=== PATIENT | female | born 1990 | race Caucasian/White ===

== ENCOUNTER 2018-09-10 05:54 | Inpatient (IN) | payer SELFPAY ==
[2018-09-10] MEDS ORDERED: SUBLIMAZE IV PRN (06:59)
[2018-09-10] MEDS ORDERED: BRETHINE SUB-Q PRN (06:59)
[2018-09-10] MEDS ORDERED: XYLOCAINE 2% INFILTRATI ONE (06:59)
[2018-09-10] MEDS ORDERED: LACTATED RINGERS 1,000 ML IV SCH (07:00)
[2018-09-10] MEDS ORDERED: PITOCin/NS 20 UNIT/1000ML DRIP 20 UNITS/1,000 ML BAG IV SCH (07:00)
--- NOTE | 2018-09-10 07:01 | History and Physical Report ---
History of Present Illness Date of examination: 09/10/18 Date of admission: 09/10/2018 Chief complaint: Contractions History of present illness: 28 year old female presents to L&D in active labor with advanced cervical dilation. Patient states contractions began around 3:00 AM today. Patient denies LOF or VB. Patient reports active movement. Patient received care at [facility] and records are available. LMP . EDC 09/18/2018 based on ultrasound done at 22 weeks, 1 day gestation. significant for the following: Late transfer of care from [place] to [facility] at 33 weeks gestation, LSIL pap smear, anemia (supplemented with iron), UTI (treated with Macrobid). labs are as follows: O+, antibody screen negative, rubella immune, urine culture showed E coli, RPR nonreactive, HIV negative, hepatitis B surface antigen negative, chlamydia negative, gonorrhea negative, sugar test 113, GBS negative. Past History Past Medical History: no pertinent history Past Surgical History: appendectomy [employer] History: abnormal PAP smear. denies: chlamydia, gonorrhea, hepatitis B, hepatitis C, herpes, HIV, syphilis, trichomonas Family/Genetic History: none Social history: lives with family, full code. denies: smoking, alcohol abuse, prescription drug abuse, IV drug use - Obstetrical History Expected Date of Delivery: 09/18/18 Actual Gestation: 38 Week(s) 6 Day(s) : 3 Para: 2 Hx # Term Pregnancies: 2 Number of Pregnancies: 0 Spontaneous Abortions: 0 Induced : 0 Number of Living Children: 2 Medications and Allergies Allergies Allergy/AdvReac Type Severity Reaction Status Date / Time No Known Allergies Allergy Unverified 09/10/18 08:01 Review of Systems All systems: negative (contractions) - Vital Signs Vital signs: Vital Signs Temp Pulse BP 98.6 F 90 101/64 09/10/18 06:35 09/10/18 06:35 09/10/18 06:35 Temp Pulse Resp BP Pulse Ox 98.6 F 90 101/64 09/10/18 06:35 09/10/18 06:35 09/10/18 06:35 - Physical Exam Abdomen: Positive: normal appearance, soft. Negative: distention, tenderness, guarding, rigidity Genitourinary (Female): Positive: normal external genitalia, normal perenium. Negative: perineal/vulvar lesions Vagina: Positive: normal moisture Uterus: Positive: enlarged (size=dates). Negative: tender Anus/Rectum: Positive: normal perianal skin Extremities: Positive: normal. Negative: tenderness, edema - Obstetrical FHR: category 2 Uterine Contraction Monitor Mode: External Cervical Dilatation: 7 Cervical Effacement Percentage: 100 station: -1 Uterine Contraction Pattern: Regular Uterine Contraction Intensity: Moderate Results Result Diagrams: 09/10/18 07:15 All other labs normal. Assessment and Plan A: at 38 weeks, 6 days gestation. Active labor. GBS negative. P: Admit. Continuous EFM. Anticipate vaginal .
[2018-09-10 07:41] LABS: Hematocrit 32.1 % (30.3-42.9); Hemoglobin 10.7 gm/dl (10.1-14.3); Mean Corpuscular HGB Conc 33 % (30-34); Mean Corpuscular Volume 86 fl (79-97); Platelet Count 244 K/mm3 (140-440); Red Blood Count 3.72 M/mm3 (3.65-5.03); Red Cell Distribution Width 13.4 % (13.2-15.2)
--- NOTE | 2018-09-10 08:14 | Procedure Note ---
OB Delivery Note - Delivery Date of Delivery: 09/10/18 Surgeon: JEEVAN TREVINO Estimated blood loss: 300cc - Vaginal Delivery presentation: vertex Delivery position: OA Intrapartum events: none Delivery induction: none Delivery augmentation: rupture of membranes (AROM when patient began to push) Delivery monitor: external FHT, external uterine Route of delivery: Delivery placenta: spontaneous Delivery cord: 3 umbilical vessels Episiotomy: none Delivery laceration: none Anesthesia: none Delivery comments: Spontaneous vaginal delivery at 07:46 of liveborn female infant weighing 7 lb. 2 oz. over intact perineum with apgars of 8/9. Thin meconium stained amniotic fluid; NICU called to attend . Baby born vigorous and cried immediately after . Baby bulb suctioned and dried and placed skin to skin with mom. 3 vessel cord double clamped and cut after cessation of pulsation. Cord blood obtained. Spontaneous delivery of intact placenta and membranes by virgen mechanism. EBL 300 cc. Pitocin to IV fluids after delivery of placenta. Fundus firm and midline. No lacerations noted. Vaginal sweep negative. Sponge count correct. Mother and baby stable in birthing room.
[2018-09-10] MEDS ORDERED: LANSINOH TP PRN (08:15)
[2018-09-10] MEDS ORDERED: TUCKS PAD TP PRN (08:15)
[2018-09-10] MEDS ORDERED: MILK OF MAGNESIA PO PRN (08:15)
[2018-09-10] MEDS ORDERED: NORCO 5/325 PO PRN (09:00)
[2018-09-10] MEDS ORDERED: SODIUM CHLORIDE FLUSH SYRINGE 10 ML IV NR (09:00)
[2018-09-10] MEDS: IBUPROFEN PO SCH ×3 (10:26→21:46)
[2018-09-10] MEDS: FEOSOL PO SCH ×2 (10:26→21:46)
[2018-09-10] MEDS: COLACE PO SCH ×2 (10:26→21:46)
[2018-09-10 20:57] LABS: Hematocrit 29.2 % (30.3-42.9); Hemoglobin 9.6 gm/dl (10.1-14.3)
[2018-09-11] MEDS: IBUPROFEN PO SCH ×2 (06:01→11:33)
--- NOTE | 2018-09-11 10:27 | Progress Note ---
Assessment and Plan - Patient Problems (1) Status post normal vaginal delivery Current Visit: Yes Status: Acute Plan to address problem: PPD 1 - stable Continue routine orders Discharge to home today Follow up at [facility] as needed or in 6 weeks for exam (2) Anemia due to blood loss, acute Current Visit: Yes Status: Acute Plan to address problem: Asymptomatic Continue iron therapy (3) Encounter for other general counseling and advice on contraception Current Visit: Yes Status: Acute Plan to address problem: Patient prefers depo provera initiated at 6 wks PP Subjective - Subjective Date of service: 09/11/18 Principal diagnosis: PPD 31; s/p Interval history: see H&P & OB Delivery Procedure Note Patient reports: appetite normal, voiding normally, pain well controlled, ambulating normally, no dizzy ambulation : doing well, nursing well Objective - Vital Signs Latest vital signs: Vital Signs Temp Pulse Resp BP BP Pulse Ox 09/11/18 08:05 98 F 72 20 98/55 09/11/18 07:01 18 09/11/18 06:01 18 09/11/18 01:11 98.1 F 80 16 100/65 98 09/10/18 22:46 18 09/10/18 21:46 18 09/10/18 20:16 98.4 F 89 18 99/64 98 09/10/18 16:18 98.3 F 82 16 100/58 95 09/10/18 12:05 99.1 F 91 H 20 102/54 92 09/10/18 10:34 98.6 F 18 113/66 09/10/18 10:26 18 Intake and Output 09/10/18 09/11/18 09/11/18 23:59 07:59 15:59 Intake Total 240 600 120 Balance 240 600 120 Intake: Oral 240 120 Intake, Free Water 600 Other: Total, Intake Amount 240 120 # Voids Void 1 1 - Exam Cardiovascular: Present: Regular rate Lungs: Present: Clear to auscultation, Normal air movement Abdomen: Present: normal appearance, soft Vulva: both: normal Uterus: Present: normal, firm, fundal height at umbilicus Extremities: Present: normal Comments: small lochia - Labs Labs: Abnormal lab results 09/10/18 Range/Units 20:47 Hgb 9.6 L (10.1-14.3) gm/dl Hct 29.2 L (30.3-42.9) %
--- NOTE | 2018-09-11 10:31 | Discharge Summary ---
Providers - Providers Date of Admission: 09/10/18 06:59 Date of discharge: 09/11/18 Attending physician: NARAYAN HALLMAN MD Primary care physician: NARAYAN HALLMAN MD Hospitalization Reason for admission: active labor, IUP at term Delivery: Episiotomy: none Laceration: none Other procedures: none complications: none Discharge diagnosis: IUP at term delivered [place] baby: female Hospital course: Uncomplicated Condition at discharge: Stable Disposition: [place]-01 TO HOME OR SELFCARE - Discharge Diagnoses (1) Status post normal vaginal delivery Status: Acute (2) Anemia due to blood loss, acute Status: Acute Comment: Asymptomatic Continue iron therapy Encouraged iron-rich foods (3) Encounter for other general counseling and advice on contraception Status: Acute Comment: Prefers depo provera initiated at 6 weeks Plan - Provider Discharge Summary Activity: routine, no sex for 6 weeks, no heavy lifting 4 weeks, no strenuous exercise Diet: routine Instructions: routine Additional instructions: [] Smoking cessation referral if applicable(refer to patient education folder for contact #) [] Refer to [facility] Booklet Call your doctor immediately for: * Fever > 100.5 * Heavy vaginal bleeding ( >1 pad per hour) * Severe persistent headache * Shortness of breath * Reddened, hot, painful area to leg or breast * Drainage or odor from incision. * Keep incision clean and dry at all times and follow doctor's instructions regarding bathing/showering - Follow up plan Follow up: NARAYAN HALLMAN MD [Primary Care Provider] - 6 Weeks (Follow up at [facility] as needed or in 6 weeks for exam)
[2018-09-11] MEDS: COLACE PO SCH (11:33)
[2018-09-11] MEDS: FEOSOL PO SCH (11:34)
[2018-09-11 16:41] VITALS: BP 106/64
== END 2018-09-11 14:45 | disposition home or self-care (01) | DRG 806 ==
LOC: TRG 05:54 → LD 06:59 → TRG 08:12 → OB 09:49
PROVIDERS: ADMIT Obstetrics & Gynecology; ATTEND Obstetrics & Gynecology
PROC: 10E0XZZ Delivery of Products of Conception, External Approach (ICD-10-PCS; principal; 2018-09-10)
PROC: 10907ZC Drainage of Amniotic Fluid, Therapeutic from Products of Conception, Via Natural or Artificial Opening (ICD-10-PCS; 2018-09-10)
DX: O77.0 Labor and delivery complicated by meconium in amniotic fluid (principal); D62 Acute posthemorrhagic anemia; Z37.0 Single live birth; Z3A.38 38 weeks gestation of pregnancy; Z90.49 Acquired absence of other specified parts of digestive tract; O90.81 Anemia of the puerperium
CPT/HCPCS: 36415; 85014; 85018; 85027; 86592; 86850; 86900; 86901; G0378; A6250; J2590; J7120